=== PATIENT | male | born 1950 | race Two or more races ===

== ENCOUNTER 2018-02-24 09:48 | Outpatient (CLI) | payer OTHER ==
[~2018-02-24] VITALS: Ht 170.2 cm; Wt 73.5 kg
== END 2018-02-24 10:10 | disposition home or self-care (01) ==
LOC: OFIC 805 09:48
DX: J31.0 Chronic rhinitis (principal); G47.33 Obstructive sleep apnea (adult) (pediatric); J34.2 Deviated nasal septum

== ENCOUNTER 2018-06-23 06:44 | Emergency (ER) | payer OTHER ==
[~2018-06-23] VITALS: Ht 170.2 cm; Wt 72.6 kg
[2018-06-23] MEDS ORDERED: SYNTHROID50 MCG (07:16)
== END 2018-06-23 15:12 | disposition home or self-care (01) ==
LOC: ER 06:44
DX: R55 Syncope and collapse (principal)

== ENCOUNTER → 2018-06-24 | Outpatient (CLI) | payer OTHER ==
[~2018-06-24] MED LIST: SYNTHROID50 MCG
== END | disposition home or self-care (01) ==
LOC: RAD 501 10:01
DX: I15.8 Other secondary hypertension (principal); I10 Essential (primary) hypertension

== ENCOUNTER 2018-08-16 10:41 | Outpatient (CLI) | payer OTHER | END 2018-08-16 12:51 | disposition home or self-care (01) | LOC: LAB 10:41 | DX: G47.33 Obstructive sleep apnea (adult) (pediatric) (principal) ==

== ENCOUNTER 2018-08-18 09:48 | Outpatient (CLI) | payer OTHER | END 2018-08-18 09:50 | disposition home or self-care (01) | LOC: NUCLEAR 09:48 | DX: R55 Syncope and collapse (principal) ==

== ENCOUNTER 2018-10-27 14:15 | Outpatient (CLI) | payer OTHER ==
[~2018-10-27] VITALS: Ht 152.4 cm; Wt 72.6 kg
== END 2018-10-27 14:30 | disposition home or self-care (01) ==
LOC: OFIC 805 14:15
DX: G47.33 Obstructive sleep apnea (adult) (pediatric) (principal); J30.89 Other allergic rhinitis

== ENCOUNTER 2019-03-01 09:02 | Outpatient (CLI) | payer OTHER | END 2019-03-01 15:00 | disposition home or self-care (01) | LOC: LAB 09:02 | DX: D51.0 Vitamin B12 deficiency anemia due to intrinsic factor deficiency (principal); I10 Essential (primary) hypertension; N39.0 Urinary tract infection, site not specified; R97.8 Other abnormal tumor markers; E55.9 Vitamin D deficiency, unspecified; D51.1 Vitamin B12 deficiency anemia due to selective vitamin B12 malabsorption with proteinuria; E03.8 Other specified hypothyroidism; K29.70 Gastritis, unspecified, without bleeding; R97.0 Elevated carcinoembryonic antigen [CEA]; E78.2 Mixed hyperlipidemia; D50.8 Other iron deficiency anemias; R97.20 Elevated prostate specific antigen [PSA]; D51.8 Other vitamin B12 deficiency anemias ==

== ENCOUNTER → 2019-03-02 | Outpatient (CLI) | payer OTHER | END | disposition home or self-care (01) | LOC: MAMO-SONO 07:15 → SONOGRAMA 07:46 | DX: D51.0 Vitamin B12 deficiency anemia due to intrinsic factor deficiency (principal); E03.8 Other specified hypothyroidism; K29.60 Other gastritis without bleeding ==

== ENCOUNTER 2019-03-26 09:26 | Emergency (ER) | payer OTHER ==
[~2019-03-26] VITALS: Ht 170.2 cm; Wt 77.1 kg
== END 2019-03-26 12:04 | disposition home or self-care (01) ==
LOC: ER 09:26
DX: E11.65 Type 2 diabetes mellitus with hyperglycemia (principal)

== ENCOUNTER 2019-06-19 13:15 | Outpatient (CLI) | payer OTHER | END 2019-06-19 13:28 | disposition home or self-care (01) | LOC: SONOGRAMA 13:15 → MAMO-SONO 13:15 → SONOGRAMA 13:28 | DX: E03.8 Other specified hypothyroidism (principal); E04.2 Nontoxic multinodular goiter ==

== ENCOUNTER 2019-09-07 07:09 | Outpatient (CLI) | payer OTHER | END 2019-09-07 07:20 | disposition home or self-care (01) | LOC: LAB 07:09 | PROVIDERS: ATTEND Internal Medicine Cardiovascular Disease | DX: E11.9 Type 2 diabetes mellitus without complications (principal); E03.8 Other specified hypothyroidism; I10 Essential (primary) hypertension; E78.2 Mixed hyperlipidemia; N40.0 Benign prostatic hyperplasia without lower urinary tract symptoms ==

== ENCOUNTER 2019-09-07 11:54 | Outpatient (CLI) | payer OTHER | END 2019-09-07 11:56 | disposition home or self-care (01) | LOC: SONOGRAMA 11:54 | PROVIDERS: ATTEND Pathology Anatomic Pathology & Clinical Pathology | DX: E04.1 Nontoxic single thyroid nodule (principal) ==

== ENCOUNTER 2020-06-26 10:25 | Outpatient (CLI) | payer OTHER | END 2020-06-26 12:00 | disposition home or self-care (01) | LOC: OFIC 805 10:25 | PROVIDERS: ATTEND Otolaryngology | DX: J34.2 Deviated nasal septum (principal); J30.89 Other allergic rhinitis; R09.81 Nasal congestion; G47.33 Obstructive sleep apnea (adult) (pediatric) ==